=== PATIENT | female | born 1935 | race Caucasian/White ===

== ENCOUNTER 2016-06-18 19:46 | Inpatient (IN) | payer OTHER, MEDICARE ==
[~2016-06-18] VITALS: Ht 167.6 cm; Wt 68.2 kg
[2016-06-18 19:50] VITALS: BP 122/68; PULSE 56; RESP 18; TEMP 98.4; O2SAT 97
--- NOTE | 2016-06-18 20:30 | NUR ---
DR. ACEVEDO AT BEDSIDE EXAMINING THE PT.
--- NOTE | 2016-06-18 20:35 | NUR ---
PT. BROUGHT INTO THE THE ER AAOX4 FROM THE URGENT CARE FOR CRITICAL hB VALUES, SKIN PALE COOL TO TOUCH, RESPIRATIONS NORMAL, EVEN UNLABORED BREATHING, SPEEZH CLEAR, AMBER, FOLLOWS COMMANDS, PULSES WNL, STATES SHE FEELS STABLE WAS SENT HERE BY HER URGENT CARE PHYSICIAN, SpO2 100%, FAMILY AT BEDSIDE
--- NOTE | 2016-06-18 20:45 | NUR ---
ER at bedside examining patient.
[2016-06-18 22:01] LABS: ANION GAP 12 (5-15); CALCIUM 8.3 mg/dL (8.4-11.0); CHLORIDE 94 mmol/L (98-107); CREATININE 1.77 mg/dL (0.55-1.30); GLUCOSE 113 mg/dL (70-99); POTASSIUM 3.9 mmol/L (3.5-5.1); SODIUM SERUM 129 mmol/L (136-145); UREA NITROGEN, BLOOD 29 mg/dL (8-21)
[2016-06-18 22:02] LABS: PROTHROMBIN TIME 10.8 SECS (9.5-12.5)
[2016-06-18 22:06] LABS: RED BLOOD CELL COUNT(AUTO) 2.74 MIL/uL (4.2-6.2); WHITE BLOOD COUNT (AUTO) 6.4 K/uL (4.8-10.8)
[2016-06-18 22:07] LABS: BASOPHILS % (AUTO) 0.1 % (0.0-2.0); EOSINOPHILS # (AUTO) 0.1 K/uL (0.0-0.4); EOSINOPHILS % (AUTO) 1.2 % (0.0-4.0); LYMPHOCYTES # (AUTO) 1.2 K/uL (1.0-5.5); LYMPHOCYTES % (AUTO) 18.3 % (20.5-51.5); MEAN CORPUSCULAR HEMOGLOBIN 15 pg (27-31); MEAN CORPUSCULAR HGB CONC 30 % (32-36); MEAN CORPUSCULAR VOLUME 51 fL (79.0-98.0); MONOCYTES # (AUTO) 0.7 K/uL (0.0-1.0); MONOCYTES % (AUTO) 10.8 % (1.7-9.3); NEUTROPHILS # (AUTO) 4.4 K/uL (1.8-7.7); NEUTROPHILS % (AUTO) 69.6 % (40.0-70.0); PLATELET COUNT (AUTO) 408 K/uL (130-430); RED CELL DISTRIBUTION WIDTH 25.6 % (9.0-15.0)
[2016-06-18 22:08] LABS: HEMOGLOBIN 4.2 g/dL (12.0-16.0)
[2016-06-18 22:10] LABS: TOTAL BILIRUBIN 0.4 mg/dL (0.0-1.0)
[2016-06-18 22:11] LABS: ALANINE AMINOTRANSFERASE 13 U/L (12-78); ALBUMIN 3.3 g/dL (3.4-4.8); ASPARTATE AMINOTRANSFERASE 15 U/L (10-37); TOTAL PROTEIN, SERUM 7.3 g/dL (6.4-8.3)
--- NOTE | 2016-06-19 | NUR ---
PATIENT RESTING: Patient resting quietly. No acute distress noted. Vital signs within normal range. Addendum: 06/19/16 at 0819 by Loreta Pettit RN WRONG ENTRY, WRONG PATIENT.
[2016-06-19] MEDS ORDERED: HYDROcodone/ACETAMIN 10-325 MG TAB PO PRN (00:15)
[2016-06-19] MEDS ORDERED: ONDANSETRON HCL 4 MG/2 ML VIAL IVP PRN (00:15)
[2016-06-19] MEDS ORDERED: ACETAMINOPHEN 325 MG TABLET PO PRN (00:15)
--- NOTE | 2016-06-19 00:25 | NUR ---
Bobby el in ED - 06/19/16 at 0720 by GILDA Patient was called and they informed her that patient has Low H&H "4.4" Patient is A&Ox4 no s/s of distress. Will continue to monitor patient.
--- NOTE | 2016-06-19 00:30 | NUR ---
Transfer to Tele via ACLS protocol. Licensed nurse present. IV present no signs or symptoms of infiltration.
--- NOTE | 2016-06-19 00:39 | NUR ---
ADMADMISSION NOTE Received patient from ER via gurney. Patient admitted with diagnosis of SEVERE ANEMIA. Patient is awake, alert, oriented X 4. Patient oriented to hospital room, call light, toileting, pain management and safety-teach back done. Patient informed that Sulma will be her nurse and that their room number is [id number]. Call light within reach.
[2016-06-19 00:40] VITALS: BP 143/66; PULSE 98; RESP 18; TEMP 98.8; O2SAT 96
--- NOTE | 2016-06-19 00:44 | NUR ---
BLOOD TRANSFUSION BLOOD TRANSFUSION WITH 1 UNIT PRBC STARTED, VITALS STABLE. PATIENT DENIES ANY TRANSFUSION REACTION NOTED. WILL CONTINUE TO MONITOR.
[2016-06-19 01:28] LABS: IRON (SERUM) 17 mcg/dL (37-145); TOTAL IRON BIND. CAPACITY 389 ug/dL (250-450)
[2016-06-19 04:25] VITALS: BP 132/66; PULSE 111; RESP 16; TEMP 98.6; O2SAT 94
[2016-06-19] MEDS ORDERED: NORMAL SALINE 5 ML DISP.SYRIN IVF SCH (06:00)
--- NOTE | 2016-06-19 06:50 | NUR ---
CLOSING NOTES PATIENT AWAKE, VITALS STABLE, ALL NEEDS ATTENDED TO. CALL LIGHT PLACED WITH PATIENT.
--- NOTE | 2016-06-19 07:00 | NUR ---
HANDOFF REPORT RECEIVED AT BEDSIDE. PATIENT PRBC INFUSING. NEEDS MET AT THIS TIME.
[2016-06-19 08:00] VITALS: BP 150/59; PULSE 115; RESP 20; TEMP 98.7; O2SAT 98
--- NOTE | 2016-06-19 09:00 | NUR ---
PATIENT VITAL SIGNS AND ASSESSMENT REMARKABLE FOR DYSPNEA ON EXCRETION. PATIENT SAYS SHE IS VERY TIRED AND WEAK.
--- NOTE | 2016-06-19 11:00 | NUR ---
START OF SECOND UNIT OF PRBC'S LAST HOUR. PATIENT TOLERATING INFUSION WELL AT 110 ML /HR. PATIENT ASSIST TO AND FROM RESTROOM WITH IV RUNNING.
[2016-06-19] MEDS ORDERED: PANTOPRAZOLE SODIUM 40 MG/VIAL (PROTONIX) IVP ONE (11:15)
--- NOTE | 2016-06-19 12:00 | NUR ---
PATIENT LUNCH TRAY PASSED BY RESTRICTIVE PREPARATION OPERATOR. DAUGHTER ASSISTING WITH PREPARATION OF PATIENT CREAMER IN COFFEE AND BUTTER ON DINNER ROLL.
[2016-06-19 13:00] VITALS: BP 152/71; PULSE 115; RESP 18; TEMP 98.4; O2SAT 98
--- NOTE | 2016-06-19 14:00 | NUR ---
BLOOD TRANSFUSION COMPLETE LAST HOUR. FAMILY AT BEDSIDE NOTE PATIENT IS FEELING BETTER.
--- NOTE | 2016-06-19 16:00 | NUR ---
ASSIST OF PATIENT TO AND FROM RESTROOM. SALINE LOCK AT THIS TIME.
[2016-06-19] MEDS ORDERED: BISACODYL 5 MG TABLET.DR (DULCOLAX) PO ONE (17:00)
[2016-06-19] MEDS ORDERED: GOLYTELY / COLYTE SOLUTION 4 LITERS PO ONE (18:00)
--- NOTE | 2016-06-19 18:10 | NUR ---
HANDOFF REPORT PREPARED FOR NOC NURSE. NEEDS MET AT THIS TIME. PATIENT TO DISCHARGE PENDING IMPROVED HEMOGLOBIN AND HEMATOCRIT AND CLEARANCE AFTER GI PROCEDURE IN AM.
[2016-06-19 20:00] VITALS: BP 161/78; PULSE 98; RESP 18; TEMP 98; O2SAT 97
--- NOTE | 2016-06-19 20:00 | NUR ---
ROUNDS PATIENT AWAKE, VITALS STABLE, DENIES ANY PAIN AND DISCOMFORT AT THIS TIME. ASSESSMENT DONE AND DOCUMENTED. SEE FLOWSHEET. NEEDS ATTENDED TO. SAFETY AND FALL PRECAUTION MEASURES IN PLACED. BED IN LOW AND LOCKED POSITION. CALL LIGHT PLACED WITHIN REACH.
[2016-06-20] VITALS: BP 158/69; PULSE 102; RESP 17; TEMP 97.8; O2SAT 98
--- NOTE | 2016-06-20 | NUR ---
PATIENT RESTING: Patient resting quietly. No acute distress noted. Vital signs within normal range.
--- NOTE | 2016-06-20 02:00 | NUR ---
ROUNDS PATIENT ASLEEP, VITALS STABLE, WILL CONTINUE TO MONITOR.
[2016-06-20 04:00] VITALS: BP 151/75; PULSE 105; RESP 18; TEMP 98.2; O2SAT 97
--- NOTE | 2016-06-20 04:15 | NUR ---
TAP WATER ENEMA TAP WATER ENEMA DONE, WATER RETURN CLEAR. WILL CONTINUE TO MONITOR.
--- NOTE | 2016-06-20 06:50 | NUR ---
CLOSING NOTES PATIENT AWAKE, VITALS STABLE, ALL NEEDS ATTENDED TO. CALL LIGHT PLACED WITHIN REACH.
[2016-06-20 07:24] LABS: ANION GAP 11 (5-15); CALCIUM 8.3 mg/dL (8.4-11.0); CHLORIDE 99 mmol/L (98-107); GLUCOSE 94 mg/dL (70-99); POTASSIUM 3.8 mmol/L (3.5-5.1); SODIUM SERUM 134 mmol/L (136-145); UREA NITROGEN, BLOOD 19 mg/dL (8-21)
[2016-06-20 07:43] LABS: BASOPHILS % (AUTO) 0.2 % (0.0-2.0); EOSINOPHILS # (AUTO) 0.3 K/uL (0.0-0.4); EOSINOPHILS % (AUTO) 3.9 % (0.0-4.0); LYMPHOCYTES % (AUTO) 12.7 % (20.5-51.5); MEAN CORPUSCULAR HEMOGLOBIN 19 pg (27-31); MEAN CORPUSCULAR HGB CONC 31 % (32-36); MEAN CORPUSCULAR VOLUME 61 fL (79.0-98.0); MONOCYTES # (AUTO) 0.7 K/uL (0.0-1.0); MONOCYTES % (AUTO) 9.1 % (1.7-9.3); NEUTROPHILS # (AUTO) 5.8 K/uL (1.8-7.7); NEUTROPHILS % (AUTO) 74.1 % (40.0-70.0); PLATELET COUNT (AUTO) 369 K/uL (130-430); RED BLOOD CELL COUNT(AUTO) 3.58 MIL/uL (4.2-6.2); RED CELL DISTRIBUTION WIDTH 35.5 % (9.0-15.0); WHITE BLOOD COUNT (AUTO) 7.8 K/uL (4.8-10.8)
[2016-06-20 08:00] VITALS: BP 145/71; PULSE 107; RESP 18; TEMP 98.7; O2SAT 98
--- NOTE | 2016-06-20 08:00 | NUR ---
initial notes rec patient asleep but arousable to stimuli. hob elevated. ivl on the r ac intact. no infiltration noted. npo maintained for colonoscopy today. ambulates to the br and julieta well to void. denies pain at this time.
[2016-06-20 08:06] LABS: HEMOGLOBIN 6.8 g/dL (12.0-16.0)
[2016-06-20 08:07] LABS: HEMATOCRIT 21.8 % (36-48)
--- NOTE | 2016-06-20 08:23 | NUR ---
Critical Value: BARB Beckwith aware of critical value hgb 6.8, HCT 21.8
--- NOTE | 2016-06-20 08:30 | NUR ---
md dr jones was called re h/h result. awaiting to call back.
[2016-06-20] MEDS: PANTOPRAZOLE SODIUM 40 MG/VIAL (PROTONIX) IVP SCH (08:48)
--- NOTE | 2016-06-20 09:07 | NUR ---
Dr. Rashid Page Back: Dr. Rashid page back [phone], new orders noted for 2 units PRBCs, BARB Beckwith made aware.
--- NOTE | 2016-06-20 10:00 | NUR ---
rounds sleeps at intervals, still awaiting for the gi procedure to be done. denies pain.
--- NOTE | 2016-06-20 11:30 | NUR ---
rounds blood transfusion first unit was started. was checked at the bedside with cash kilgore . explained to patient to watch out for any untoward reaction for blood transfusion like chest pain, chills, fever, itching.back ache and etc. family at bedside and updated re patient's progress. no sob noted.
--- NOTE | 2016-06-20 12:02 | NUR ---
rounds blood transfusion in progress. no blood transfusion reaction after 15 min. no sob noted.
[2016-06-20 12:04] VITALS: BP 156/72; PULSE 92; RESP 16; TEMP 97.2; O2SAT 94
[2016-06-20] MEDS ORDERED: SIMETHICONE 40 MG/0.6 ML ML ONE (13:30)
--- NOTE | 2016-06-20 14:00 | NUR ---
rounds first unit of blood was transfused. no untoward reaction noted. no c.o back or chest pain.
--- NOTE | 2016-06-20 14:35 | NUR ---
rounds 2nd unit of blood was started and checked at bedside with esequiel howell rn at [facility]. patiwnt was taken to gi lab by leandra . endorsed re vitak signs prior to gi lab
[2016-06-20] MEDS: MIDAZOLAM HCL 5 MG/5 ML VIAL ONE ×5 (15:27→15:50)
[2016-06-20] MEDS: fentaNYL CITRATE/PF 100 MCG/2 ML AMP ONE ×4 (15:27→15:44)
[2016-06-20 16:06] VITALS: BP 157/83; PULSE 82; RESP 16; TEMP 98.5; O2SAT 96
--- NOTE | 2016-06-20 16:40 | NUR ---
rounds pt back from gi lab.no sob noted.blood transfusion still in progress.
--- NOTE | 2016-06-20 18:00 | NUR ---
rounds blood transfusion was completed and no untoward reaction noted. denies pain and no sob noted. family at bedside.
--- NOTE | 2016-06-20 18:46 | NUR ---
closing notes watching tv. no sob noted. needs attended, stable. resp easy and unlabored. fall /safety measures instructed.
[2016-06-20 19:00] VITALS: BP 155/66; PULSE 90; RESP 18; TEMP 97.2; O2SAT 90
--- NOTE | 2016-06-20 19:00 | NUR ---
INITIAL NOTE RECVD PT IN BED,A/A/O X4.NO C/O PAIN AND NO RESPI DISTRESS NOTED.V/S 155/66,97.2,90,18,95%RA.NOTED IV R F/A G 22 NO INFILTRATE WITH GOOD BLOOD RETURN.TO ALL EXTREMITIES ARE STRONG,AMBULATE WITH ASSIST.DISCUSSED PLAN OF CARE WITH PT AND VERBALIZED UNDERSTANDING.CALL LIGHT WITHIN REACH,WILL CONT TO MONITOR.
[2016-06-20 19:39] LABS: HEMATOCRIT 29.4 % (36-48); HEMOGLOBIN 9.1 g/dL (12.0-16.0)
--- NOTE | 2016-06-20 21:00 | NUR ---
ROUNDS PT IS AWAKE,WATCHING TV @ THIS TIME.ASKED AND GIVEN A SIP OF WATER BUT REMINDED PT TO BE NPO @ MIDNIGHT.CALL LIGHT WITHIN REACH,WILL CON TO MONITOR.
--- NOTE | 2016-06-20 23:00 | NUR ---
ROUNDS PT IS SLEEPING @ THIS TIME.NO C/O PAIN AND NO SOB.CALL LIGHT WITHIN REACH,WILL CONT TO MONITOR.
[2016-06-21 00:34] VITALS: BP 156/81; PULSE 81; RESP 18; TEMP 98.1; O2SAT 94
--- NOTE | 2016-06-21 01:00 | NUR ---
ROUNDS PT IS COMFORTABLY SLEEPING @ THIS TIME.NO C/O PAIN AND NO RESPI DISTRESS NOTED.CALL LIGHT WITHIN REACH,WILL CONT TO MONITOR.
--- NOTE | 2016-06-21 03:00 | NUR ---
ROUNDS PT IS ASLEEP @ THIS TIME.NO SIGNS OF PAIN AND NO SOB NOTED.CALL LIGHT WITHIN REACH,WILL CONT TO MONITOR.
--- NOTE | 2016-06-21 05:00 | NUR ---
ROUNDS PT IS SLEEPING @ THIS TIME.NO S/S OF PAIN AND NO SOB NOTED.CALL LIGHT WITHIN REACH,WILL CONT OT MONITOR.
[2016-06-21 05:30] VITALS: BP 145/67; PULSE 93; RESP 18; TEMP 98.4; O2SAT 100
[2016-06-21 05:50] LABS: BASOPHILS % (AUTO) 0.5 % (0.0-2.0); EOSINOPHILS # (AUTO) 0.6 K/uL (0.0-0.4); EOSINOPHILS % (AUTO) 6.1 % (0.0-4.0); HEMATOCRIT 28.9 % (36-48); HEMOGLOBIN 9.1 g/dL (12.0-16.0); LYMPHOCYTES # (AUTO) 1.3 K/uL (1.0-5.5); LYMPHOCYTES % (AUTO) 14.5 % (20.5-51.5); MEAN CORPUSCULAR HEMOGLOBIN 21 pg (27-31); MEAN CORPUSCULAR HGB CONC 32 % (32-36); MEAN CORPUSCULAR VOLUME 67 fL (79.0-98.0); MONOCYTES # (AUTO) 0.7 K/uL (0.0-1.0); MONOCYTES % (AUTO) 7.7 % (1.7-9.3); NEUTROPHILS # (AUTO) 6.7 K/uL (1.8-7.7); NEUTROPHILS % (AUTO) 71.2 % (40.0-70.0); PLATELET COUNT (AUTO) 328 K/uL (130-430); RED BLOOD CELL COUNT(AUTO) 4.34 MIL/uL (4.2-6.2); RED CELL DISTRIBUTION WIDTH 35.5 % (9.0-15.0); WHITE BLOOD COUNT (AUTO) 9.3 K/uL (4.8-10.8)
[2016-06-21 06:00] LABS: ANION GAP 11 (5-15); CALCIUM 8.5 mg/dL (8.4-11.0); CHLORIDE 101 mmol/L (98-107); CREATININE 1.36 mg/dL (0.55-1.30); GLUCOSE 80 mg/dL (70-99); POTASSIUM 3.8 mmol/L (3.5-5.1); SODIUM SERUM 134 mmol/L (136-145); UREA NITROGEN, BLOOD 14 mg/dL (8-21)
--- NOTE | 2016-06-21 06:46 | NUR ---
FINAL NOTES PT IS ASLEEP @ THIS TIME.NO C/O PAIN AND NO SOB NOTED.V/S ARE WNL.ALL NEEDS MET AND ANTICIPATED BY NOC NURSES.CALL LIGHT WITHIN REACH,WILL ENDORSE.
--- NOTE | 2016-06-21 07:42 | NUR ---
OPENING NOTE: RECEIVED REPORT FROM NIGHT NURSE. PATIENT IS RESTING COMFORTABLY IN BED. NO S/S OF DISTRESS OR SOB. PATIENT IS ALERT AND ORIENTED, ABLE TO EXPRESS NEEDS, AND ASK FOR ASSISTANCE. VITAL SIGNS WNL, ASSESSMENT COMPLETE. CALL LIGHT IN REACH, BED IN LOWEST POSITION, AND WILL CONTINUE TO MONITOR.
[2016-06-21 08:06] VITALS: BP 153/72; PULSE 89; RESP 16; TEMP 96.2; O2SAT 91
[2016-06-21] MEDS: PANTOPRAZOLE SODIUM 40 MG/VIAL (PROTONIX) IVP SCH (08:29)
[2016-06-21] MEDS ORDERED: DIATR MEGLU/DIATRIZ SOD 30 ML SOLUTION PO ONE (09:35)
--- NOTE | 2016-06-21 10:00 | NUR ---
NOTE: PATIENT IS RESTING COMFORTABLY IN BED. NO S/S OF DISTRESS OR SOB. INSULATION POWER UNIT TENDER IN ROOM WITH PATIENT. CALL LIGHT IN REACH, BED IN LOWEST POSITION, AND WILL CONTINUE TO MONITOR.
[2016-06-21] MEDS: D5/0.45 NS 1,000 ML IV SCH (11:39)
[2016-06-21 12:00] VITALS: BP 154/81; PULSE 110; RESP 18; TEMP 97.6; O2SAT 94
--- NOTE | 2016-06-21 12:15 | NUR ---
MD ORDERS/NOTE: PATIENT IS RESTING COMFORTABLY IN BED. NO S/S OF DISTRESS OR SOB. SPOKE WITH DR. KIM AND GOT AN ORDER FOR IV HYDRATION AND HE SAID TO CHANGE HER DIET TO 2 GRAM SODIUM AFTER THE SMALL BOWEL FOLLOW THROUGH SERIES WAS DONE. ORDERS NOTED AND CARRIED OUT. CALL LIGHT IN REACH, BED IN LOWEST POSITION, AND WILL CONTINUE TO MONITOR.
[2016-06-21] MEDS ORDERED: LISINOPRIL 5 MG TABLET PO ONE (13:30)
--- NOTE | 2016-06-21 14:00 | NUR ---
NOTE: PATIENT IS RESTING COMFORTABLY IN BED. NO S/S OF DISTRESS OR SOB. PATIENT IS ALERT AND ORIENTED, ABLE TO EXPRESS NEEDS, AND ASK FOR ASSISTANCE. CALL LIGHT IN REACH, BED IN LOWEST POSITION, AND WILL CONTINUE TO MONITOR.
[2016-06-21 17:58] VITALS: BP 144/67; PULSE 80; RESP 18; TEMP 97.4; O2SAT 96
--- NOTE | 2016-06-21 18:02 | NUR ---
NOTE: PATIENT IS RESTING COMFORTABLY IN BED. NO S/S OF DISTRESS OR SOB. PATIENT IS ALERT AND ORIENTED, ABLE TO EXPRESS NEEDS, AND ASK FOR ASSISTANCE. PATIENT STATED THAT SINCE SHE IS EATING AND DRINKING NOW, SHE DOES NOT WANT TO BE CONNECTED TO THE IV FLUIDS. I DISCONNECTED HER AND WILL PASS IT ON TO NIGHT NURSE. CALL LIGHT IN REACH, BED IN LOWEST POSITION, AND WILL GIVE REPORT TO NIGHT NURSE.
[2016-06-21 19:04] VITALS: BP 151/76; PULSE 79; RESP 18; TEMP 97.6; O2SAT 93
--- NOTE | 2016-06-21 19:04 | NUR ---
INITIAL NOTES RECVD PT IN BED,A/A/X4 WITH FAMILY @ BEDSIDE.NO C/O PAIN AND NO SOB NOTED.V/S 1151/76,97.4,79,18,93% RA.ALL EXTREMITIES ARE STRONG ABLE TO AMBULATE TO B/R.NOTED IV TO L F/A G22, FLUSHING WELL.EXPLAINED PLAN OF CARE WITH PT AND ORIENT WILL CALL LIGHT.WILL CONT TO MONITOR.
--- NOTE | 2016-06-21 21:04 | NUR ---
ROUNDS PT IS AWAKE, WATCHING TV @ THIS TIME.NO C/O PAIN AND NO SOB NOTED.CALL LIGHT WITHIN REACH,WILL CONT TO MONITOR.
--- NOTE | 2016-06-21 23:04 | NUR ---
ROUNDS PT IS SLEEPING COMFORTABLY @ THIS TIME.NO S/S OF PAIN AND NO SOB NOTED.CALL LIGHT WITHIN REACH,WILL CONT TO MONITOR.
[2016-06-22 00:18] VITALS: BP 147/64; PULSE 119; RESP 21; TEMP 96.7; O2SAT 92
--- NOTE | 2016-06-22 01:04 | NUR ---
ASSISTED TO B/R AND SAFELY BACKED TO BED.NO S/S OF PAIN AND NO SOB NOTED.CALL LIGTH WITHIN REACH,WILL CONT TO MONITOR.
--- NOTE | 2016-06-22 03:04 | NUR ---
ROUNDS PT IS SLEEPING @ THIS TIME.NO S/S OF PAIN AND NO SOB NOTED.CALL LIGHT WITHIN REACH,WILL CONT TO MONITOR.
[2016-06-22 04:22] VITALS: BP 142/66; PULSE 112; RESP 18; TEMP 97.6; O2SAT 94
--- NOTE | 2016-06-22 05:04 | NUR ---
ROUNDS PT IS COMFORTABLY SLEEPING @ THIS TIME.NO S/S OF PAIN AND NO SOB NOTED.CALL LIGHT WITHIN REACH,WILL CONT TO MONITOR.
[2016-06-22] MEDS: D5/0.45 NS 1,000 ML IV SCH (06:46)
--- NOTE | 2016-06-22 06:55 | NUR ---
FINAL NOTES PT IS SLEEPING @ THIS TIME,NO C/O PAIN AND NO RESPI DISTRESS NOTED.V/S ARE WNL.ALL NEEDS MET AND ANTICIPATED BY NOC NURSES.CALL LIGHT WITHIN REACH,ENDORSED.
[2016-06-22 07:37] LABS: HEMATOCRIT 28.4 % (36-48); HEMOGLOBIN 9.5 g/dL (12.0-16.0); MEAN CORPUSCULAR HEMOGLOBIN 22 pg (27-31); MEAN CORPUSCULAR HGB CONC 33 % (32-36); MEAN CORPUSCULAR VOLUME 65 fL (79.0-98.0); PLATELET COUNT (AUTO) 310 K/uL (130-430); RED CELL DISTRIBUTION WIDTH 35.2 % (9.0-15.0); WHITE BLOOD COUNT (AUTO) 9.7 K/uL (4.8-10.8)
[2016-06-22 08:07] VITALS: BP 144/80; PULSE 109; RESP 16; TEMP 98.2; O2SAT 92
[2016-06-22 08:10] LABS: ANION GAP 12 (5-15); CALCIUM 8.4 mg/dL (8.4-11.0); CHLORIDE 99 mmol/L (98-107); CREATININE 1.42 mg/dL (0.55-1.30); GLUCOSE 101 mg/dL (70-99); POTASSIUM 3.5 mmol/L (3.5-5.1); SODIUM SERUM 132 mmol/L (136-145); UREA NITROGEN, BLOOD 20 mg/dL (8-21)
[2016-06-22 08:34] LABS: BASOPHILS % (AUTO) 0.1 % (0.0-2.0); EOSINOPHILS # (AUTO) 0.1 K/uL (0.0-0.4); EOSINOPHILS % (AUTO) 6.8 % (0.0-4.0); LYMPHOCYTES # (AUTO) 1.5 K/uL (1.0-5.5); MONOCYTES # (AUTO) 0.8 K/uL (0.0-1.0); MONOCYTES % (AUTO) 8.2 % (1.7-9.3); NEUTROPHILS # (AUTO) 6.7 K/uL (1.8-7.7); NEUTROPHILS % (AUTO) 69.9 % (40.0-70.0)
[2016-06-22 08:37] LABS: BAND % (MANUAL) 0 % (0-6); BASOPHILS % (MANUAL) 0 % (0-2); EOSINOPHILS % (MANUAL) 8 % (0-7); LYMPHOCYTES % (MANUAL) 9 % (20-46); MONOCYTES % (MANUAL) 13 % (0-11)
[2016-06-22] MEDS ORDERED: LISINOPRIL 5 MG TABLET PO SCH (09:00)
[2016-06-22] MEDS: PANTOPRAZOLE SODIUM 40 MG/VIAL (PROTONIX) IVP SCH (09:26)
--- NOTE | 2016-06-22 10:00 | NUR ---
NOTE" PATIENT IS RESTING COMFORTABLY IN BED. NO S/S OF DISTRESS OR SOB. PATIENT IS ALERT AND ORIENTED, ABLE TO EXPRESS NEEDS AND ASK FOR ASSISTANCE. STUDENT NURSE ADMINISTERED AM MEDS UNDER RN SUPERVISION. CALL LIGHT IN REACH, BED IN LOWEST POSITION, AND WILL CONTINUE TO MONITOR.
[2016-06-22 12:00] VITALS: BP 136/78; PULSE 76; RESP 18; TEMP 98.7; O2SAT 96
[2016-06-22] MEDS ORDERED: LISI-209 PO (12:39)
[2016-06-22 12:48] VITALS: BP 136/78; PULSE 76; RESP 18; TEMP 98.7; O2SAT 96
--- NOTE | 2016-06-26 16:23 | NUR ---
Discharge Follow Up Phone Call BUNDLE PERSON phoned patient, , and left a voicemail message. Patient returned the call. Patient stated she is doing fine. She has a daughter that lives nearby who helps her when needed. Patient stated she did not fill any new prescriptions as she has been on Lisinopril for many years. She has stopped her aspirin. She has a follow up appointment at [facility] on 07/10/16. She is aware that if she has any new or concerning symptoms that she should call [facility] for an earlier appointment or go to the ER. Patient has no questions or concerns. No further follow up calls needed.
== END 2016-06-22 13:30 | disposition home or self-care (01) | DRG 378 ==
LOC: SED 19:46 → STU 06-19 00:07
PROVIDERS: ADMIT Internal Medicine; ATTEND Internal Medicine
PROC: 30233N1 Transfusion of Nonautologous Red Blood Cells into Peripheral Vein, Percutaneous Approach (ICD-10-PCS; 2016-06-19)
PROC: 0W3P8ZZ Control Bleeding in Gastrointestinal Tract, Via Natural or Artificial Opening Endoscopic (ICD-10-PCS; 2016-06-19)
PROC: 0DB98ZX Excision of Duodenum, Via Natural or Artificial Opening Endoscopic, Diagnostic (ICD-10-PCS; principal; 2016-06-20 08:00)
PROC: 0DB68ZX Excision of Stomach, Via Natural or Artificial Opening Endoscopic, Diagnostic (ICD-10-PCS; 2016-06-20 08:00)
PROC: 0DBP8ZX Excision of Rectum, Via Natural or Artificial Opening Endoscopic, Diagnostic (ICD-10-PCS; 2016-06-20 08:00)
DX: K55.21 Angiodysplasia of colon with hemorrhage (principal); D62 Acute posthemorrhagic anemia; D50.9 Iron deficiency anemia, unspecified; K44.9 Diaphragmatic hernia without obstruction or gangrene; K57.30 Diverticulosis of large intestine without perforation or abscess without bleeding; K62.1 Rectal polyp; F17.200 Nicotine dependence, unspecified, uncomplicated; N28.9 Disorder of kidney and ureter, unspecified; K64.8 Other hemorrhoids; Q27.33 Arteriovenous malformation of digestive system vessel; Z85.528 Personal history of other malignant neoplasm of kidney; Z90.710 Acquired absence of both cervix and uterus; Z90.49 Acquired absence of other specified parts of digestive tract; K29.70 Gastritis, unspecified, without bleeding; I12.9 Hypertensive chronic kidney disease with stage 1 through stage 4 chronic kidney disease, or unspecified chronic kidney disease; N18.3 Chronic kidney disease, stage 3 (moderate)
CPT/HCPCS: 36415; 43239; 45380; 45382; 74250-TC; 80048; 80053; 82272; 82607; 82746; 83540-TC; 83550-TC; 85007; 85018-TC; 85025; 85027; 85610-TC; 85730-TC; 86886; 86900; 86901; 86920; 87081; 88305; 88312; 99291; C9113; J2250; J3010; J7030; J7040; J7050; P9021; Q9964

== ENCOUNTER 2017-09-28 12:02 | Emergency (ER) | payer OTHER, MEDICARE ==
[~2017-09-28] VITALS: Ht 167.6 cm; Wt 64.9 kg
[~2017-09-28 12:02] MED LIST: LISI-209 PO
[2017-09-28 12:23] VITALS: BP_SYST 166
[2017-09-28 15:51] VITALS: BP_SYST 151
== END 2017-09-28 15:51 | disposition home or self-care (01) ==
LOC: SED 12:02
DX: H53.2 Diplopia (principal); I10 Essential (primary) hypertension; Z88.0 Allergy status to penicillin; Z88.5 Allergy status to narcotic agent; Z88.1 Allergy status to other antibiotic agents
CPT/HCPCS: 70450-TC; 72125-TC; 99284